=== PATIENT | male | born 1990 | race Caucasian/White ===

== ENCOUNTER 2016-11-22 19:21 | Emergency (ER) | payer OTHER ==
[~2016-11-22] VITALS: Ht 172.7 cm; Wt 69.4 kg
[2016-11-22 19:22] VITALS: BP 144/74
[2016-11-22] MEDS ORDERED: ZOFR4TAB3 PO ×3 (19:51→19:54)
[2016-11-22] MEDS ORDERED: diphenhydrAMINE 25 MG CAP PO ONE (20:00)
[2016-11-22] MEDS ORDERED: ONDANSETRON 4 MG ORAL DISINTEGRATING TAB (S0181) PO ONE (20:00)
== END 2016-11-22 20:27 | disposition home or self-care (01) ==
LOC: EDBD → M ED 19:21
DX: B34.9 Viral infection, unspecified (principal); K52.9 Noninfective gastroenteritis and colitis, unspecified; Z87.891 Personal history of nicotine dependence

== ENCOUNTER 2016-11-23 23:30 | Emergency (ER) | payer OTHER ==
[~2016-11-23] VITALS: Ht 172.7 cm; Wt 70.5 kg
[~2016-11-23 23:30] MED LIST: ZOFR4TAB3 PO
[2016-11-23 23:31] VITALS: BP 152/80
[2016-11-24] MEDS ORDERED: LIDOCAINE 2% MDV 20 ML VIAL SC ONE (00:30)
== END 2016-11-24 01:07 | disposition home or self-care (01) ==
LOC: M ED 23:30 → EDBD 23:30 → M ED 11-24 01:07
DX: S61.217A Laceration without foreign body of left little finger without damage to nail, initial encounter (principal); W26.0XXA Contact with knife, initial encounter; Y92.019 Unspecified place in single-family (private) house as the place of occurrence of the external cause; Y93.G1 Activity, food preparation and clean up; Y99.8 Other external cause status; Z88.2 Allergy status to sulfonamides

== ENCOUNTER 2016-12-23 17:43 | Emergency (ER) | payer OTHER ==
[~2016-12-23] VITALS: Ht 172.7 cm; Wt 72.7 kg
[2016-12-23 17:48] VITALS: BP 142/78
[2016-12-23] MEDS ORDERED: HYDR-3713 (17:53)
== END 2016-12-23 19:27 | disposition home or self-care (01) ==
LOC: M ED 17:43
DX: Z48.89 Encounter for other specified surgical aftercare (principal); Z88.2 Allergy status to sulfonamides

== ENCOUNTER 2019-04-09 02:08 | Emergency (ER) | payer OTHER ==
[~2019-04-09] VITALS: Ht 172.7 cm; Wt 79.5 kg
[~2019-04-09 02:08] MED LIST changes: +HYDR-3713; +ZOFR4TAB14 PO; -ZOFR4TAB3 PO
[2019-04-09] MEDS ORDERED: ACETAMINOPHEN 325 MG TAB PO ONE (02:45)
[2019-04-09 03:25] LABS: INFLUENZA A AMPLIFICATION POSITIVE (NEGATIVE); INFLUENZA B AMPLIFICATION NEGATIVE (NEGATIVE)
[2019-04-09] MEDS ORDERED: OSELTAMIVIR PHOSPHATE 75 MG CAP (TAMIFLU) PO ONE (03:30)
[2019-04-09] MEDS ORDERED: OSEL75CA PO (03:32)
[2019-04-09 04:28] VITALS: BP 120/73
== END 2019-04-09 04:29 | disposition home or self-care (01) ==
LOC: M ED 02:08
DX: J09.X9 Influenza due to identified novel influenza A virus with other manifestations (principal)